=== PATIENT | male | born 1990 | race American Indian/Alaskan Native ===

== ENCOUNTER 2017-06-13 19:18 | Emergency (ER) | payer SELFPAY ==
[2017-06-13] MEDS ORDERED: TYLENOL PO ONE (20:23)
[2017-06-13] MEDS ORDERED: TYLENOL ONE (20:25)
[2017-06-13 20:58] LABS: Basophils % (Auto) 0.6 % (0.0-1.8); Eosinophils % (Auto) 0.5 % (0.0-4.3); Hematocrit 41.8 % (35.5-45.6); Hemoglobin 13.6 gm/dl (11.8-15.2); Lymphocytes # (Auto) 0.8 K/mm3 (1.2-5.4); Lymphocytes % (Auto) 9.7 % (13.4-35.0); Mean Corpuscular HGB Conc 33 % (32-34); Mean Corpuscular Hemoglobin 26 pg (28-32); Mean Corpuscular Volume 80 fl (84-94); Monocytes # (Auto) 0.4 K/mm3 (0.0-0.8); Monocytes % (Auto) 5.5 % (0.0-7.3); Platelet Count 310 K/mm3 (140-440); Red Blood Count 5.23 M/mm3 (3.65-5.03); Red Cell Distribution Width 14.8 % (13.2-15.2)
[2017-06-13 21:12] LABS: BUN/Creatinine Ratio 12; Blood Urea Nitrogen 11 mg/dL (9-20); Calcium 9.4 mg/dL (8.4-10.2); Hemolysis Index 25
[2017-06-14] MEDS ORDERED: ROBITUSSIN PO ONE (00:16)
[2017-06-14] MEDS ORDERED: DELTASONE PO ONE (00:16)
--- NOTE | 2017-06-14 00:19 | Emergency Department Report ---
HPI - General Chief Complaint: Fever Time Seen by Provider: 06/13/17 23:56 - HPI HPI: he is a 26-year-old male with a history of asthma who presents to ED complaining cough and fever times one day. Patient states he is an intermittent fever and chills today. Patient states cough is intermittently productive with yellow mucous. Patient denies nausea/vomiting/chest pains or shortness of breath/diarrhea abdominal pain. ED Past Medical Hx - Past Medical History Previous Medical History?: Yes Hx Asthma: Yes - Surgical History Past Surgical History?: No - Social History Smoking Status: Current Every Day Smoker Substance Use Type: Marijuana - Medications Home Medications: Home Medications Medication Instructions Recorded Confirmed Last Taken Type Albuterol *Only Ed* [Proventil 2.5 mg IH Q4H PRN #20 ml 07/21/15 Unknown Rx 0.5% NEBS] Azithromycin [Zithromax Z-ZIGGY] 250 mg PO QDAY #6 tablet 07/21/15 Unknown Rx predniSONE [Deltasone] 20 mg PO QDAY #5 tab 07/21/15 Unknown Rx Acetamin/Codeine 120-12Mg/5 ml 5 ml PO TID PRN #60 ml 06/14/17 Unknown Rx [Tylenol/Codeine] Albuterol Sulfate [Ventolin HFA] 2 puff IH Q4H PRN #1 hfa.aer.ad 06/14/17 Unknown Rx Benzonatate [Tessalon Perles] 100 mg PO Q8HR #21 capsule 06/14/17 Unknown Rx D-Methorphan/PE/Acetaminophen 1 each PO Q6H #30 tablet 06/14/17 Unknown Rx [Tylenol Cold Max Day Caplet] Ibuprofen [Motrin] 600 mg PO Q8H PRN #20 tablet 06/14/17 Unknown Rx ED Review of Systems ROS: Stated complaint: CHILLS/ FEVER Other details as noted in HPI Constitutional: fever. denies: chills Eyes: denies: eye pain, eye discharge, vision change ENT: congestion. denies: ear pain, throat pain Respiratory: cough. denies: shortness of breath, wheezing Cardiovascular: denies: chest pain, palpitations Endocrine: no symptoms reported Gastrointestinal: denies: abdominal pain, nausea, diarrhea Genitourinary: denies: urgency, dysuria Musculoskeletal: denies: back pain, joint swelling, arthralgia Skin: denies: rash, lesions Neurological: denies: headache, weakness, paresthesias Psychiatric: denies: anxiety, depression Hematological/Lymphatic: denies: easy bleeding, easy bruising Physical Exam - Physical Exam Vital Signs: Vital Signs 06/13/17 20:20 Temperature 102.4 F H Pulse Rate 78 Respiratory 14 Rate Blood Pressure 164/75 O2 Sat by Pulse 99 Oximetry Physical Exam: GENERAL: Alert and oriented x3, no apparent distress, Normal Gait, atraumatic. HEAD: Head is normocephalic and a-traumatic. EYES: Extra ocular muscles are intact. Pupils are equal, round, and reactive to light and accommodation. EARS: symetrical, atraumatic, non tender, ear canal clear and moderate cerumen, tympanic membrance non inflamed. gross auditory nml bilaterally. NOSE: Nose symetrical, Nontender,Nares appeared normal. MOUTH:Mouth is well hydrated and without lesions. Tonsils nonerythematous or swollen, Uvula midline, Tongue not elevated. Mucous membranes are moist. Posterior pharynx clear, no exudate or lesions. Patent airways. NECK: Supple. Non edematous, No lymphadenopathy or thyromegaly. No C-spine tenderness LUNGS: Symetrical with respiration, No wheezing, no rales or crackles, CTAB. HEART: S1, S2 present, regular rate and rhythm without murmur, no rubs, no gallops. Non tender to palpation BACK: Full range of motion, no spinal tenderness, nontender to palpation. NEUROLOGIC: The patient is cooperative with no focal neurologic deficits. SKIN: Warm and dry, No lesions, No ulceration or induration present. ED Course Vital Signs 06/13/17 20:20 Temperature 102.4 F H Pulse Rate 78 Respiratory 14 Rate Blood Pressure 164/75 O2 Sat by Pulse 99 Oximetry ED Medical Decision Making - Lab Data Result diagrams: 06/13/17 20:30 06/13/17 20:30 Vital Signs 06/13/17 06/14/17 06/14/17 20:20 00:58 01:00 Temperature 102.4 F H 99.7 F H Pulse Rate 78 77 Respiratory 14 16 Rate Blood Pressure 164/75 Blood Pressure 159/80 [Right] O2 Sat by Pulse 99 100 100 Oximetry - Radiology Data Radiology results: report reviewed, image reviewed FINAL REPORT EXAM: XR CHEST ROUTINE 2V HISTORY: cough/fever TECHNIQUE: 2 views of the chest. PRIORS: None. FINDINGS: The cardiomediastinal silhouette appears normal. The lungs are clear. The bones and soft tissues are unremarkable. IMPRESSION: No evidence of acute cardiopulmonary disease - Medical Decision Making 26-year-old male presents with upper respiratory tract infection ED course: CBC CMP shows normal findings. Patient received prednisone, Robitussin and Tylenol in the ED. Fever reduced in the ED. Chest x-ray ordered. Chest x-ray as eported above I discussed all findings with the patient. I discussed the patient to follow up primary care physician in 3-5 days. I discussed plenty of fluids. Vitamin C daily Vital signs normalized, patient is in no acute or respiratory distress. I discussed with the patient if he has worsening symptoms or new onset of symptoms to return to ED immediately Critical care attestation.: If time is entered above; I have spent that time in minutes in the direct care of this critically ill patient, excluding procedure time. ED Disposition Clinical Impression: URI (upper respiratory infection) Qualifiers: URI type: unspecified URI Qualified Code(s): J06.9 - Acute upper respiratory infection, unspecified Disposition: DC-01 TO HOME OR SELFCARE Is pt being admited?: No Does the pt Need Aspirin: No Condition: Stable Instructions: Upper Respiratory Infection (ED), Acute Bronchitis (ED), Viral Syndrome (ED) Additional Instructions: Make sure to follow up with the primary care physician as discussed. Take all your medications as you've been prescribed. If you have any worsening symptoms or develop new symptoms please return to ED immediately. Prescriptions: Acetamin/Codeine 120-12Mg/5 ml [Tylenol/Codeine] 5 ml PO TID PRN #60 ml PRN Reason: Pain Albuterol Sulfate [Ventolin HFA] 2 puff IH Q4H PRN #1 hfa.aer.ad PRN Reason: Shortness Of Breath Benzonatate [Tessalon Perles] 100 mg PO Q8HR #21 capsule D-Methorphan/PE/Acetaminophen [Tylenol Cold Max Day Caplet] 1 each PO Q6H #30 tablet Ibuprofen [Motrin] 600 mg PO Q8H PRN #20 tablet PRN Reason: Pain Referrals: PRIMARY CARE, [Primary Care Provider] - 3-5 Days [facility] [Outside] - 3-5 Days [facility] [Outside] - 3-5 Days Forms: Accompanied Note, Work/School Release Form(ED) Time of Disposition: 00:49
--- NOTE | 2017-06-14 00:41 | XRay Report ---
FINAL REPORT EXAM: XR CHEST ROUTINE 2V HISTORY: cough/fever TECHNIQUE: 2 views of the chest. PRIORS: None. FINDINGS: The cardiomediastinal silhouette appears normal. The lungs are clear. The bones and soft tissues are unremarkable. IMPRESSION: No evidence of acute cardiopulmonary disease
[2017-06-14 00:59] VITALS: BP 159/80
== END 2017-06-14 01:40 | disposition home or self-care (01) ==
LOC: ED 19:18
DX: J06.9 Acute upper respiratory infection, unspecified (principal); J45.909 Unspecified asthma, uncomplicated; F17.200 Nicotine dependence, unspecified, uncomplicated; F12.10 Cannabis abuse, uncomplicated
CPT/HCPCS: 36415; 71046; 80048; 85025; 99283; J7512

== ENCOUNTER 2019-05-28 18:37 | Emergency (ER) | payer SELFPAY ==
--- NOTE | 2019-05-28 19:23 | XRay Report ---
CHEST 2 VIEWS INDICATION / CLINICAL INFORMATION: cough, chest pain. COMPARISON: 06/14/2017 FINDINGS: SUPPORT DEVICES: None. HEART / MEDIASTINUM: No significant abnormality. LUNGS / PLEURA: No significant pulmonary or pleural abnormality. No pneumothorax. ADDITIONAL FINDINGS: No significant additional findings. IMPRESSION: 1. No acute findings. Signer Name: Weston Sage MD Signed: 05/28/2019 7:19 PM Workstation Name: [id number]
--- NOTE | 2019-05-28 22:06 | Emergency Department Report ---
Minor Respiratory - HPI Chief Complaint: Upper Respiratory Infection Stated Complaint: EMIR Time Seen by Provider: 05/28/19 22:00 Duration: 4 Days Minor Respiratory: Yes Cough, Yes Fever, No Rhinorrhea, No Sore Throat, No Able to Tolerate Fluids, No Ear Pain, No Sick Contacts, No Hemoptysis, No Chest Pain, No Shortness of Breath Other History: 28-year-old -Citizen Of [place] male presents to the emergency room complaining of cough congestion and asthma flare 4 days without relief from inhaler. Patient last used inhaler 7:30 PM. Patient reports that his inhaler has not helped. It was noted the patient has a low-grade fever of 100.9 in triage. Patient has a past medical history of asthma. ED Review of Systems ROS: Stated complaint: EMIR Other details as noted in HPI Comment: All other systems reviewed and negative ED Past Medical Hx - Past Medical History Previous Medical History?: Yes Hx Asthma: Yes - Surgical History Past Surgical History?: No - Social History Smoking Status: Current Every Day Smoker Substance Use Type: Marijuana - Medications Home Medications: Home Medications Medication Instructions Recorded Confirmed Last Taken Type Albuterol *Only Ed* [Proventil 2.5 mg IH Q4H PRN #20 ml 07/21/15 Unknown Rx 0.5% NEBS] Azithromycin [Zithromax Z-ZIGGY] 250 mg PO QDAY #6 tablet 07/21/15 Unknown Rx Acetamin/Codeine 120-12Mg/5 ml 5 ml PO TID PRN #60 ml 06/14/17 Unknown Rx [Tylenol/Codeine] Albuterol Sulfate [Ventolin HFA] 2 puff IH Q4H PRN #1 hfa.aer.ad 06/14/17 Unknown Rx Benzonatate [Tessalon Perles] 100 mg PO Q8HR #21 capsule 06/14/17 Unknown Rx D-Methorphan/PE/Acetaminophen 1 each PO Q6H #30 tablet 06/14/17 Unknown Rx [Tylenol Cold Max Day Caplet] Ibuprofen [Motrin] 600 mg PO Q8H PRN #20 tablet 06/14/17 Unknown Rx Albuterol Sulfate [Proventil Hfa] 6.7 gm IH QID PRN #1 hfa.aer.ad 05/28/19 Unknown Rx Azithromycin [Zithromax Z-ZIGGY] 0 mg PO DAILY #6 tab 05/28/19 Unknown Rx predniSONE [Deltasone] 20 mg PO QDAY #5 tab 05/28/19 Unknown Rx Minor Respiratory Exam - Exam General: Vital signs noted. No distress. Alert and acting appropriately. HEENT: Yes Moist Mucous Membranes, No Pharyngeal Erythema, No Pharyngeal Exudates, No Rhinorrhea, No Conjuctival Injection, No Frontal Tenderness, No Maxillary Tenderness Neck: Yes Supple, No Adenopathy Lungs: Yes Good Air Exchange, Yes Cough, No Wheezes, No Ronchi, No Stridor, No Labored Respirations, No Retractions, No Use of Accessory Muscles, No Other Abnormal Lung Sounds Heart: Yes Regular, No Murmur Abdomen: Yes Normal Bowel Sounds, No Tenderness, No Peritoneal Signs Skin: No Rash, No Edema Neurologic: Alert and oriented, no deficits. Musculoskeletal: Unremarkable. ED Course Vital Signs 05/28/19 19:01 Temperature 100.9 F H Pulse Rate 98 H Respiratory 17 Rate Blood Pressure 131/69 O2 Sat by Pulse 97 Oximetry ED Medical Decision Making - Medical Decision Making 28-year-old -Citizen Of [place] male presents to the emergency room complaining of cough congestion and asthma flare 4 days without relief from inhaler. Patient last used inhaler 7:30 PM. Patient reports that his inhaler has not helped. It was noted the patient has a low-grade fever of 100.9 in triage. Patient has a past medical history of asthma. Patient's x-ray was negative. Patient be treated for bronchitis with azithromycin , prednisone, albuterol inhaler. He is to follow-up with his primary care provider if his symptoms persist or gets worse Critical care attestation.: If time is entered above; I have spent that time in minutes in the direct care of this critically ill patient, excluding procedure time. ED Disposition Clinical Impression: Acute bronchitis Disposition: DC-01 TO HOME OR SELFCARE Is pt being admited?: No Does the pt Need Aspirin: No Condition: Stable Instructions: Acute Bronchitis (ED) Prescriptions: predniSONE [Deltasone] 20 mg PO QDAY #5 tab Albuterol Sulfate [Proventil Hfa] 6.7 gm IH QID PRN #1 hfa.aer.ad PRN Reason: Cough Azithromycin [Zithromax Z-ZIGGY] 0 mg PO DAILY #6 tab
[2019-05-28] MEDS ORDERED: IBUPROFEN 600 MG TAB PO ONE (22:46)
[2019-05-28] MEDS ORDERED: guaiFENesin/CODEINE 100-10MG ORAL LIQD 5 ML PO ONE (22:46)
[2019-05-28 23:29] VITALS: BP 125/63
== END 2019-05-28 23:27 | disposition home or self-care (01) ==
LOC: ED 18:37
DX: F17.200 Nicotine dependence, unspecified, uncomplicated (principal); F12.10 Cannabis abuse, uncomplicated; Z79.899 Other long term (current) drug therapy; Z79.1 Long term (current) use of non-steroidal anti-inflammatories (NSAID)
CPT/HCPCS: 71046